=== PATIENT | male | born 1940 | race Caucasian/White ===

== ENCOUNTER → 2017-03-01 | Outpatient (CLI) | payer MEDICARE, BC ==
[~2017-03-01] MED LIST: ASA325 MG PO; AUGMENTIN 250250 MG PO; CENTRUM SILVER1 EAC1 PO; CO Q-1050 MG PO; DEXAMETHASONE4 MG PO; HYDROCODON-ACE1 EAC4 PO; LASIX DPS40 MG PO; LIPITOR DPS10 MG PO; NEURONTIN DPS300 MG PO; NITROSTAT0.4 MG SL; POTASSIUM CHLO20 ME2 PO; PRILOSEC DPS20 MG PO; PROCTOSOL-HC28.35 GM PR; REVLIMID25 MG PO; SAW PALMETTO160 MG PO; SENOKOT DPS8.6 MG PO; TOPROL XL25 MG PO; VITAMIN D-32000 UNI1 PO; ZOVIRAX400 MG PO
== END | disposition home or self-care (01) ==
LOC: CARD 10:15 → PTH.S 10:45 → RAD.S 10:45 → CARD 11:00
DX: C90.00 Multiple myeloma not having achieved remission (principal); M89.9 Disorder of bone, unspecified; Z96.643 Presence of artificial hip joint, bilateral

== ENCOUNTER 2017-06-10 17:40 | Inpatient (IN) | payer MEDICARE, BC ==
[~2017-06-10] VITALS: Ht 182.9 cm; Wt 92.1 kg
--- NOTE | ~2017-06-10 | ECH ---
Transthoracic Echocardiography Report (TTE) Demographics Patient Name SONIDO REYES Date of Study 06/11/2017 Patient Number [id number] Visit Number [id number] Date of 1940 Room Number 409 Accession Number [id number] Gender Male Age 76 year(s) Referring Reji Larsen MD Inventory Administrator Nelly Beck Physician RDCS Physician Interpreting Niranjan Villagomez MD [employer] Cleaner Physician Supervising Ordering Physician Reji Larsen MD, MD/MLP Nurse Stress Fill Technician Conclusions Contractility Score Summary Normal Left Ventricular contractility was noted. Summary Technically good exam. The estimated left ventricular ejection fraction is 60-65%. The left atrium is severely dilated by LA volume index measurement. The right atrium is mildly dilated. Mild-moderate mitral regurgitation by color Doppler. There is mild aortic stenosis by the Continuity Equation. The peak velocity is 2.9 m/s, the mean gradient is 19 mmHg, and the valve area based on the continuity equation is 1.5 cm2, stroke volume index is 39 ml/m2. Peak velocity obtained in apical view. There is trivial aortic regurgitation by color Doppler. The ascending aorta appears mildly dilated. The maximum diameter measures 3.6 cm. Procedure Type of Study TTE procedure:Echo Complete SF. Procedure Date Date: 06/11/2017 Start: 09:21 AM Technical Quality: Good visualization Indications:Shortness of breath, Hypertension, Coronary artery disease and History of CABG. Additional Indications:History of stents Appropriate Use Criteria: 9 Height: 72 inches Weight: 216 pounds BSA: 2.2 m Rhythm: Within normal limits HR: 87 bpm BP: 137/76 mmHg M-Mode/2D Measurements LV Diastolic Dimension: 5.55 cm LV Systolic Dimension: 3.99 cm LV Septum Diastolic: 0.98 cm LV PW Diastolic: 1.01 cm AO Root Dimension: 3.67 cm Cardiac Output: 7.5 l/min LA Dimension: 4.77 cm Cardiac Index: 3.41 l/min*m RV Diastolic Dimension: 4.57 cm LA volume index: 52 ml/m LVOT: 2.19 cm LVOT VTI: 22.91 cm RV Base: 3.9 cm LV Stroke volume: 86.25 ml RV Mid: 2.3 cm LV Stroke volume index: 39.2 ml/m TAPSE: 12 cm TDI-S': 11 cm/s Doppler Measurements AV Peak Velocity: 2.87 m/s MV Peak E-Wave: 0.97 m/s AV Peak Gradient: 32.95 mmHg MV Peak A-Wave: 0.67 m/s AV Mean Gradient: 19.81 mmHg MV E/A Ratio: 1.45 LVOT Peak Velocity: 1.1 m/s MV P1/2t: 55.9 msec AV Area (Continuity):1.52 cm MV Deceleration Time: 203.1 msec TR Velocity:2.81 m/s MV Area (PHT): 3.94 cm TR Gradient:31.61 mmHg PV Peak Velocity: 1.24 m/s Estimated RAP:3 mmHg PV Peak Gradient: 6.18 mmHg Estimated RVSP: 35 mmHg Estimated PASP: 34.61 mmHg E' Septal Velocity: 0.1 m/s A' Septal Velocity: 0.08 m/s E' Lateral Velocity: 0.13 m/s A' Lateral Velocity: 0.1 m/s RA Area: 19.42 cm Findings Left Ventricle Normal left ventricle size and function. Diastolic assessment reveals normal relaxation. Right Ventricle Normal right ventricle structure and function. Left Atrium The left atrium is severely dilated by LA volume index measurement. Right Atrium The right atrium is mildly dilated. Mitral Valve Mild mitral annular calcification. Mild-moderate mitral regurgitation by color Doppler. Aortic Valve There is mild aortic stenosis by the Continuity Equation. The peak velocity is 2.9 m/s, the mean gradient is 19 mmHg, and the valve area based on the continuity equation is 1.5 cm2, stroke volume index is 39 ml/m2. Peak velocity obtained in apical view. There is trivial aortic regurgitation by color Doppler. Tricuspid Valve Normal tricuspid valve structure and function. Mild tricuspid regurgitation by color Doppler. Normal pulmonary pressures. Pulmonic Valve Normal pulmonic valve structure and function. Pericardial Effusion No evidence of pericardial effusion. Miscellaneous The ascending aorta appears mildly dilated. The maximum diameter measures 3.6 cm. Pleural Effusion No evidence of pleural effusion. Contractility Score LV regional wall motion:(0-Non visualized 1-Normal 2-Hypokinesis 3-Akinesis 4-Dyskinesis 5-Aneurysm) Signature
--- NOTE | 2017-06-11 06:17 | HP ---
ADMIT: 06/10/2017 RM/LOC: 409 [facility] MR#: [id number] [address] SONIDO REYES [facility] [address] [place] [address] History and Physical SEX: M AGE: 76 : 1940 DATE OF SERVICE: CHIEF COMPLAINT: Shortness of breath, fever. HISTORY OF PRESENT ILLNESS: The patient is an absolutely fantastic 76-year- old gentleman transferred down from [facility], which he had been hospitalized for the last 4 days. He was hospitalized there on the initially for pneumonia. Was on some antibiotics. Initially made a little bit of improvement, and then over the last day or two, seemed to be getting worse. X-ray was reportedly getting worse. He was transferred down for more definitive care and to be closer to his oncologist. The patient did have an episode at an outside hospital regarding IVIG infusion, his first of such, which he got reaction to this. Hypotensive, short of breath. Sounds like they had to give quite a bit of volume resuscitation and steroids, etc., to get over it. He states he has a lot of swelling in his extremities and buttocks as well as just his abdomen. A lot of fullness and uncomfortableness there. This had been an issue in the past. Denies any chest pain. No palpitations. Some nausea. No fullness. No emesis. Continued to have fevers today, nearly 102 degrees. Just started coughing up a little bit of sputum now. A little bit of streaking blood in it today but had not been prior. No nosebleeds. No sore throat. Does not report any sick contacts. He is on treatment for his multiple myeloma that just recently discovered a few months ago. Revlimid. Tolerating otherwise prior to this very well. PAST MEDICAL HISTORY: 1. Coronary artery disease, status post DC with 2-vessel CABG in December 2012. Just recently established with Dr. Dc Anna with [facility]. 2. History of thoracic mass, calcified hematoma, sounds like status post resection with some chronic right neuropathic leg pain. 3. Osteoarthritis. 4. History of prostatitis. 5. History of hypertension. 6. Hyperlipidemia. 7. Multiple myeloma. 8. GERD. PAST SURGICAL HISTORY: 1. He has had 2-vessel CABG as well as 2 stents placed. 2. Left and right hip replacements. 3. Left knee replacement. 4. Five back surgeries. 5. Steel plate in his right arm and arm surgery. 6. Back and thoracic mass resection surgery years ago. Missing his right 7th rib. MEDICATIONS: His home medications include: 1. Acyclovir. 2. Aspirin. 3. Centrum. ADMIT: 06/10/2017 RM/LOC: 409 [facility] MR#: [id number] [address] [place] [address] History and Physical SEX: M AGE: 76 : 1940 4. Dexamethasone during chemo treatments. 5. Gabapentin. 6. Hydrocodone. 7. Lipitor. 8. Nitrostat. 9. Omeprazole. 10.Proctosol. 11.Revlimid. 12.Senna. 13.Toprol. 14.Vitamin D3. ALLERGIES: NONE. FAMILY HISTORY: Significant for father with cirrhosis. Mother of cancer of unknown. Brother of lung cancer. Hypertension in his mother. REVIEW OF SYSTEMS: As per HPI. Otherwise, completely reviewed and negative. PHYSICAL EXAMINATION: VITAL SIGNS: Temperature 97.7, pulse 100, respiratory rate 20, blood pressure 129/68. He is saturating 95% on room air. GENERAL: He is alert and oriented x3. No acute distress. Very pleasant gentleman. HEENT: Normocephalic, atraumatic. Pupils equal, round, and reactive to light and accommodation. Extraocular muscles intact. Dry mucous membranes. NECK: No lymphadenopathy. Trachea midline. LUNGS: He has some rales present bilaterally posteriorly. He has missing rib on his right with some ballooning when he takes a deep breath. HEART: Regular rate and rhythm. No murmurs, rubs, or gallops. Very distant. PMI at 5th intercostal space. ABDOMEN: Soft, nontender, nondistended. Bowel sounds present. EXTREMITIES: No cyanosis or clubbing. Pitting edema up to his entirety of his leg up into his waist and even into his abdomen, 3+ anasarca. NEUROLOGICAL: No focal deficits noted. Cranial nerves II through XII grossly intact. SKIN: No rashes noted. NEUROLOGICAL: No focal deficits noted. PSYCHIATRIC: Very pleasant, normal insight, interacts very well with family. LABORATORY AND X-RAY DATA: From earlier today at outside hospital, his white count is 8.42, his hemoglobin 9.2, his platelets 100.3. Glucose is 90, potassium 3.5, creatinine 0.8, calcium is 7.0, AST and ALT are 65 and 39 respectively, total protein is 5. Gram stain from a culture done yesterday. It looks like a sputum culture is negative. Just some few epithelial cells. I do have any other cultures. X-ray I took a look at his x-ray personally. I see a left lower lobe pneumonia and some opacity in the right lower lobe as well. Some fluid in the major fissure. Borderline cardiomegaly. Prior sternotomy. ADMIT: 06/10/2017 RM/LOC: 409 [facility] MR#: [id number] [address] SONIDO REYES [facility] [address] [facility] [place] [address] History and Physical SEX: M AGE: 76 : 1940 ASSESSMENT: 1. Pneumonia, possible drug-resistant organism. 2. Multiple myeloma. 3. Coronary artery disease. 4. Hypervolemia post volume resuscitation. Possible acute congestive heart failure. 5. Hypertension. 6. Hypogammaglobulinemia. PLAN: At this time, we will trial some diuresis. I suspect that his x-ray worsening has been more secondary to the volume resuscitation more than anything. We will re-culture him from a sputum standpoint, as he did provide a good specimen here. We will get blood cultures should he re-spike the fever. We will put him on some IV antibiotics, Zosyn. We will see how he does in that regard from an infectious standpoint. After we diurese him for a day or two, I think we will get a chest CT scan to evaluate for anything suggestive of a fungal pneumonia which given appearance of his x-ray and symptoms is less likely. We will get an echo to make sure he has preserved ejection fraction given his presentation and history of coronary artery disease. He cannot recall his last echo. The patient is agreeable to plan. We will have Oncology see him to help to determine his treatment plan regarding hypogammaglobulinemia and obviously his multiple myeloma. Gautam Mendoza MD/ marimar JOB #: [id number] CC: Gautam Mendoza, Attending Physician Gautam Mendoza, Family Physician
[2017-06-13] MEDS ORDERED: ASA325 MG PO (15:07)
[2017-06-13] MEDS ORDERED: CENTRUM SILVER1 EAC1 PO (15:07)
[2017-06-13] MEDS ORDERED: ZOVIRAX400 MG PO (15:07)
[2017-06-13] MEDS ORDERED: NEURONTIN DPS300 MG PO (15:08)
[2017-06-13] MEDS ORDERED: CO Q-1050 MG PO (15:08)
[2017-06-13] MEDS ORDERED: DEXAMETHASONE4 MG PO (15:08)
[2017-06-13] MEDS ORDERED: HYDROCODON-ACE1 EAC4 PO (15:09)
[2017-06-13] MEDS ORDERED: LIPITOR DPS10 MG PO (15:09)
[2017-06-13] MEDS ORDERED: NITROSTAT0.4 MG SL (15:09)
[2017-06-13] MEDS ORDERED: PROCTOSOL-HC28.35 GM PR (15:10)
[2017-06-13] MEDS ORDERED: PRILOSEC DPS20 MG PO (15:10)
[2017-06-13] MEDS ORDERED: SAW PALMETTO160 MG PO (15:11)
[2017-06-13] MEDS ORDERED: SENOKOT DPS8.6 MG PO (15:11)
[2017-06-13] MEDS ORDERED: TOPROL XL25 MG PO (15:11)
[2017-06-13] MEDS ORDERED: REVLIMID25 MG PO (15:11)
[2017-06-13] MEDS ORDERED: AUGMENTIN 250250 MG PO (15:12)
[2017-06-13] MEDS ORDERED: VITAMIN D-32000 UNI1 PO (15:12)
[2017-06-13] MEDS ORDERED: POTASSIUM CHLO20 ME2 PO (15:12)
[2017-06-13] MEDS ORDERED: LASIX DPS40 MG PO (15:12)
--- NOTE | 2017-06-18 17:02 | DS ---
ADMIT: 06/10/2017 RM/LOC: 409 [facility] MR#: [id number] [facility] [address] [place] [address] SONIDO REYES [facility] [address] [place] [address] Discharge Summary SEX: M AGE: 76 : 1940 ADMISSION DATE: 06/10/2017 DISCHARGE DATE: 06/12/2017 ATTENDING AT TIME OF DISCHARGE: Gautam Mendoza MD CONSULTATION: Oncology, Yifan Marie MD. FINAL DIAGNOSES: 1. Pneumonia. 2. Acute hypervolemia secondary to volume resuscitation. 3. Multiple myeloma. 4. Coronary artery disease status post CABG (coronary artery bypass graft). 5. History of thoracic mass status post resection years ago. 6. Hyperlipidemia. 7. GERD (gastroesophageal reflux disease). REASON FOR ADMISSION: The patient is a very pleasant, 76-year-old gentleman, who was up in [facility] for 3-4 days. Transferred down for worsening pneumonia concerns and to be closer to his oncologist. HOSPITAL COURSE: The patient was admitted. At outside hospital, he had received broad-spectrum antibiotics. His x-ray was worsening. He had had an IVIG infusion and had severe reaction to this. Reported large amounts of volume resuscitation. The patient states he is up at least 15 pounds and feels very edematous and full. Some uncomfortableness around his abdomen because of it. Some minimal cough. He had had a fever just prior to transfer. Did not feel feverish during hospitalization and did not re-spike a fever. Placed on IV antibiotics, Zosyn. Previously had been on cefepime and Levaquin. He very aggressively was diuresed. Lost greater than 13 pounds. [place] much improved and on exam was much improved. X-ray showed improvement as well, although he had persistent bibasilar infiltrates, worse on the left. This was expected and will likely hopefully resolve over the next 3-4 weeks. Given that he overall clinically improved dramatically, he felt safe and stable for discharge to home on a course of oral diuretics for a week. We did an echo while he was here given his history of coronary artery disease, and it showed a preserved ejection fraction of 60-65% with a dilated left atrium, some [id number] MR and mild aortic stenosis. Overall was pretty normal. The patient's renal function, tolerated the aggressive diuresis very well. His immunoglobulin IgG level level was checked and was 274. Plan is for outpatient IVIG, possibly Oncology. Oncology saw him while he was inpatient. Given he felt well, we discharged him to home with close followup with his PCP. ADMIT: 06/10/2017 RM/LOC: 409 [facility] MR#: [id number] [id number] [address] SONIDO REYES [facility] [address] [facility] [place] [address] Discharge Summary SEX: M AGE: 76 : 1940 DISCHARGE INSTRUCTIONS: Please see discharge MAR, which I reviewed, for full details on medications. He will be discharged on a course of Augmentin, Lasix, potassium. He will follow up with his PCP within a week. We will get a chest x-ray in 3-4 weeks to evaluate for improvement of his infiltrates. Should they not improve, he will need a CT scan to further evaluate. He is instructed that if she clinically worsens at all, he needs to follow up with his primary care provider as soon as possible. Patient indicates understanding. Twenty minutes on day of discharge spent doing discharge day activities. Gautam Mendoza MD/ aquiles JOB #: [id number] CC: Gautam Mendoza MD, Attending Physician Gautam Mendoza MD, Family Physician
== END 2017-06-12 13:47 | disposition home or self-care (01) | DRG 194 ==
LOC: 4PCU 17:40
PROVIDERS: ADMIT Internal Medicine
DX: J18.9 Pneumonia, unspecified organism (principal); C90.01 Multiple myeloma in remission; D89.2 Hypergammaglobulinemia, unspecified; E87.70 Fluid overload, unspecified; G62.9 Polyneuropathy, unspecified; I25.10 Atherosclerotic heart disease of native coronary artery without angina pectoris; I34.0 Nonrheumatic mitral (valve) insufficiency; I35.0 Nonrheumatic aortic (valve) stenosis; I10 Essential (primary) hypertension; E78.5 Hyperlipidemia, unspecified; K21.9 Gastro-esophageal reflux disease without esophagitis; Z95.5 Presence of coronary angioplasty implant and graft; I25.2 Old myocardial infarction; Z96.643 Presence of artificial hip joint, bilateral; Z96.652 Presence of left artificial knee joint; Z95.1 Presence of aortocoronary bypass graft; Z90.89 Acquired absence of other organs